=== PATIENT | male | born 1980 | race Caucasian/White ===

== ENCOUNTER → 2023-09-02 13:05 | Outpatient (REF) | payer OTHER, SELFPAY ==
[2023-09-02 14:16] LABS: % Basophils 0.7 % (0-2); % Eosinophils 3.2 % (0-6); % Immature Granulocytes 0.2 % (0-0.5); % Lymphocytes 39.2 % (20.5-51.1); % Monocytes 8.1 % (1.7-9.3); % Neutrophils 48.6 % (42.2-75.2); Absolute Eosinophils 0.2 10^3/uL (0-0.7); Absolute Lymphocytes 2.2 10^3/uL (1.2-3.4); Absolute Monocytes 0.5 10^3/uL (0.1-0.6); Absolute Neutrophils 2.8 10^3/uL (1.4-6.5); Hemoglobin 14.4 g/dL (13.0-18.0); Mean Corp Hgb Conc. 35.1 g/dL (33.0-37.0); Mean Corpuscular Hgb 32.8 pg (27.0-31.0); Mean Corpuscular Volume 93.4 fL (80.0-94.0); Mean Platelet Volume 10.6 fL (7.4-10.4); Nucleated Red Blood Cells % 0 % (-); Platelet Count 126 10^3/uL (130-400); Red Blood Cell Count 4.39 10^6/uL (4.70-6.10); Red Cell Dist. Width 12.2 % (11.5-14.5); White Blood Cell Count 5.7 10^3/uL (4.8-10.8)
[2023-09-02 14:21] LABS: Urine Albumin Trace (Neg - Trace); Urine Bilirubin 1+ (Negative); Urine Character Clear (Clear); Urine Color Amber; Urine Glucose Negative (Negative); Urine Ketone Trace (Negative); Urine Leukocyte Trace (Negative); Urine Nitrite Negative (Negative); Urine Occult Blood Negative (Negative); Urine Specific Gravity 1.025 (<1.030); Urine Urobilinogen 1+ (Neg - 1+)
[2023-09-02 14:36] LABS: ALT (SGPT) 47 U/L (0-50); AST (SGOT) 79 U/L (17-59); Albumin 4.5 g/dl (3.5-5.0); Alkaline Phosphatase 115 U/L (38-126); Blood Urea Nitrogen 12 mg/dl (9-20); Calcium 9.1 mg/dl (8.4-10.2); Carbon Dioxide 24 mmol/L (22-30); Chloride 103 mmol/L (98-107); Glucose 146 mg/dl (70-99); HDL Cholesterol 61 mg/dl; LDL Cholesterol, Calculated 95 mg/dl; Potassium 3.8 mmol/L (3.5-5.1); Sodium 133 mmol/L (135-145); Total Bilirubin 0.9 mg/dl (0.2-1.3); Total Cholesterol 171 mg/dl (50-199); Total Protein 7.7 g/dl (6.3-8.2); Triglyceride 76 mg/dl (10-149); Very Low Density Lipoprotein 15 mg/dl (0-30); eGFR > 60.00
[2023-09-02 14:38] LABS: Urine Mucus Few
[2023-09-02 14:39] LABS: Urine Red Blood Cell 0-2 /HPF (0-2)
[2023-09-02 14:40] LABS: Urine Bacteria Few (Negative)
[2023-09-03 20:05] LABS: Hepatitis B Surface Antigen Negative (Negative)
[2023-09-03 20:23] LABS: Hepatitis B Core Ab, Total Negative (Negative); Hepatitis B Surface Antibody Positive; Hepatitis C Antibody Negative (Negative)
[2023-09-05 01:43] LABS: HCV Quant by NAAT IU/mL Not Detected; HCV Quant by NAAT Interp Not Detected (Not Detected); HCV Quant by NAAT Log IU/mL Not Detected log IU/mL
== END ==
LOC: REG 13:05
PROVIDERS: ATTENDING PHYSICIAN Family Medicine
DX: B18.2 Chronic viral hepatitis C (principal); K21.9 Gastro-esophageal reflux disease without esophagitis; R10.84 Generalized abdominal pain; R30.0 Dysuria; Z00.00 Encounter for general adult medical examination without abnormal findings
CPT/HCPCS: 36415; 80053; 80061; 81003; 81015; 83036; 84443; 85025; 86704; 86706; 86803; 87340; 87522

== ENCOUNTER → 2023-12-29 12:31 | Outpatient (REF) | payer OTHER, SELFPAY | LOC: HWRAD 12:31 | PROVIDERS: ATTENDING PHYSICIAN Family Medicine | DX: K43.9 Ventral hernia without obstruction or gangrene (principal) | CPT/HCPCS: 74150 ==

== ENCOUNTER 2024-02-12 20:14 | Emergency (ER) | payer OTHER, SELFPAY ==
[2024-02-12 20:21] VITALS: BP 145/88; BMI 34.4
--- NOTE | 2024-02-12 21:12 | ED.GENMED ---
History of Present Illness
<Pat Herzog DO, Resident - Last Filed: 02/12/24 21:36>
General
Chief Complaint: Abdominal Pain
Source: patient
Time Seen by Provider: 02/12/24 20:56
History of Present Illness
History of Present Illness:
Patient is a 43-year-old male presenting to the ED with concern of left-sided abdominal mass. He states he has had this mass that fluctuates in size for the past few months. He states there is tenderness to palpation. He states he had a CT scan
to evaluate the mass in December which he went over with his primary care physician. He states he has no fevers, no chest pain, no shortness of breath, no nausea, no vomiting, no diarrhea, no radiating pain.
Past History
<Pat Herzog DO, Resident - Last Filed: 02/12/24 21:36>
Past History
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
ED Past Surgical History: None
Social History
Tobacco: Smoker
Alcohol: None
Drug: Former user
Personal: Partner
Living: with family
Employment: Employed
Family History
Family History: Other (Noncontributory)
Review of Systems
<Pat Herzog DO, Resident - Last Filed: 02/12/24 21:36>
Review of Systems
Constitutional: Reports no symptoms
EENT: Reports no symptoms
Respiratory: Reports no symptoms
Cardiac: Reports no symptoms
ABD/GI: Reports abdominal pain and constipated
: Reports no symptoms
Musculoskeletal: Reports no symptoms
Skin: Reports no symptoms
Neurological: Reports no symptoms
Phy Exam
<Pat Herzog DO, Resident - Last Filed: 02/12/24 21:36>
General Physical Exam
General Presentation: well appearing and mild distress
General age: appears stated age
General Skin: warm and dry
General Habitus: obese
General Mental: alert
General Hydration: appears well hydrated
Cardiovascular Exam
Cardiovascular Exam: regular rate/rhythm, no edema, no gallop, no JVD, no murmur and normal peripheral pulses
Pulmonary Exam
Pulmonary Exam: lungs clear, no respiratory distress, no rales, chest non tender, no crackles, no rhonchi, no stridor, no wheezing and no cough
Gastrointestinal Exam
Gastrointestinal Exam: soft, distended and tender
Musculoskeletal Exam
Musculoskeletal Exam: full ROM and no edema
Skin Exam
Skin Exam: normal color, warm/dry, no rash and no petechia
Course
<Pat Herzog DO, Resident - Last Filed: 02/12/24 21:36>
Vital Signs
Initial and Last Documented VS:
Initial Vital Signs
Temp Pulse Resp BP Pulse Ox
98.5 F 86 16 145/88 99
02/12/24 20:21 02/12/24 20:21 02/12/24 20:21 02/12/24 20:21 02/12/24 20:21
Last Documented Vital Signs
Temp Pulse Resp BP Pulse Ox
98.5 F 86 16 145/88 99
02/12/24 20:21 02/12/24 20:21 02/12/24 20:21 02/12/24 20:21 02/12/24 20:21
<Kulwant Cortez DO - Last Filed: 02/12/24 21:50>
Vital Signs
Initial and Last Documented VS:
Initial Vital Signs
Temp Pulse Resp BP Pulse Ox
98.5 F 86 16 145/88 99
02/12/24 20:21 02/12/24 20:21 02/12/24 20:21 02/12/24 20:21 02/12/24 20:21
Last Documented Vital Signs
Temp Pulse Resp BP Pulse Ox
98.5 F 86 16 145/88 99
02/12/24 20:21 02/12/24 20:21 02/12/24 20:21 02/12/24 20:21 02/12/24 20:21
<Pat Herzog DO, Resident - Last Filed: 02/12/24 21:36>
MDM/Problems Addressed
Differential Diagnosis Includes:
Abdominal pain
MDM/Problems Addressed:
Patient is a 43-year-old male presenting to the ED with concerns left-sided abdominal pain and abdominal mass. Patient is stable. Reviewed CT from December with patient and discussed that there was no mass, fluid collection, hernia development in
region of concern. Discussed lifestyle modifications with patient to improve fatty liver disease.
Chronic conditions affecting care:
N/A
Acute Exacerbation and/or Progression of Chronic Illness:
N/A
<Pat Herzog DO, Resident - Last Filed: 02/12/24 21:36>
*Pulse Oximetry
Patient hypoxic: no
*EKG
Interpreted by ED Provider?: NA
*Business Systems Lead Interpretation
Rate: Business Systems Lead- N/A
*Critical Care Note
Total Time (30-74mins, 75-104mins- exclusive of procedures): Not Applicable
ED Attending Note
<Pat Herzog DO, Resident - Last Filed: 02/12/24 21:36>
-
Portions of this chart may have been created with voice recognition software.� Occasional wrong word or��sound alike� substitutions may have occurred due to the inherent limitations of voice recognition software.
<Kulwant Cortez DO - Last Filed: 02/12/24 21:50>
ED Attending Note
Patient seen and examined by attending physician: Yes
I performed a history and physical exam of patient and discussed management with resident, I reviewed resident's note and agree with documented findings and plan of care.: Yes
ED Attending Note:
I have seen and evaluated the patient with a [id number] encounter. I have spoken to the resident and involved in the medical history, the physical exam, medical decision making.
Evaluation and management service: agree unless noted differently below.
Results interpretation: agree unless noted differently below.
Focused HPI: 43-year-old male presenting for evaluation of left flank pain. Patient states this has been going on for the past few months. He feels a lump there. Patient did have a CT already but did not appreciate the follow-up with his PCP
Physical exam: Extremely well-appearing nontoxic. Very questionable muscle spasm noted to left flank. Abdomen otherwise soft and nontender
Medical Decision Making: I printed out the CT findings from last visit. We went over the findings and discussed his liver hepatitis. Blood work done in August showed no significant abnormality other than mild LFT elevation. Patient is
comfortable with the presumed diagnosis of muscle spasm and feels comfortable going home
Discharge Plan
Departure
Patient Disposition: Home (Routine Discharge)
Date of Disposition: 02/12/24
Time of Disposition: 21:32
Patient with high blood pressure during this ER visit?: Yes
Condition: Good
Discharge Problem:
Abdominal pain
Instructions: Abdominal Pain, BLOOD PRESSURE
Prescriptions:
No Action
azithromycin 250 MG tablet
250 mg PO UD Qty: 6 0RF
albuterol sulfate 1 PUFF HFA aerosol inhaler
1 puff inhalation QIDPRN PRN (Reason: QUICK RELIEF OF WHEEZING ONLY) Qty: 1 0RF
ciprofloxacin HCl [Cipro] 500 MG tablet
500 mg PO BID Qty: 42 0RF
ondansetron 4 mg Tablet,Disintegrating
4 mg PO TIDPRN PRN (Reason: nausea/vomiting) Qty: 9 0RF
Robitussin Cough-Chest Zachary DM 5-100 mg/5 mL liquid
10 ml PO Q6H PRN (Reason: Cough) Qty: 500 0RF
Referrals:
UNKNOWN - PT DOES,NOT KNOW [Unknown Provider] -
Interventions
Interventions:
*Risk Screen - Suicide Last Done: 02/12/24 20:21
*General Assessment Last Done: 02/12/24 21:14
*Neglect/Abuse Screening Last Done: 02/12/24 20:21
ED- Fall Risk Assessment Last Done: 02/12/24 21:14
*ED COVID-19 Vaccine History Last Done: 02/12/24 21:14
GS-Rdakeb-Qxjxvzhljx Assessment Last Done: 02/12/24 21:14
Discharge Date and Time
Print Language: MONGOLIAN
== END 2024-02-12 21:45 | disposition home or self-care (01) ==
LOC: EMR 20:14
PROVIDERS: EMERGENCY PHYSICIAN Student in an Organized Health Care Education/Training Program; FAMILY PHYSICIAN Family Medicine
DX: R10.9 Unspecified abdominal pain (principal); R03.0 Elevated blood-pressure reading, without diagnosis of hypertension; F17.200 Nicotine dependence, unspecified, uncomplicated
CPT/HCPCS: 99282

== ENCOUNTER 2024-07-03 21:56 | Emergency (ER) | payer OTHER, SELFPAY ==
[2024-07-03 21:59] VITALS: BP 108/79
[2024-07-03] MEDS: ADACEL 0.5 ML IM (23:00)
[2024-07-03] MEDS: KEFLEX 500 MG PO (23:41)
--- NOTE | 2024-07-03 23:51 | ED.GENMED ---
History of Present Illness
General
Chief Complaint: Skin Surface Trauma
Source: patient
Exam Limitations: none
Time Seen by Provider: 07/03/24 22:33
Nursing documentation reviewed up to this point in time: agreed with
History of Present Illness
History of Present Illness:
43-year-old male with history as documented presents to the ER for puncture wound on his left foot. Patient dropped a pocket knife and accidentally stepped on it with his left foot and suffered a minor puncture on the instep of his left foot. Came
to the ER for assessment. No other injuries or issues. Unsure of last tetanus.
Past History
Past History
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
ED Past Surgical History: None
Social History
Tobacco: Smoker
Alcohol: None
Drug: Former user
Personal: Partner
Living: with family
Employment: Employed
Family History
Family History: Other (Noncontributory)
Review of Systems
Review of Systems
All Other Systems: ROS reviewed and negative except as documented in HPI and ROS
Skin: Reports other (Puncture wound)
Phy Exam
Physical Exam
Physical Exam:
General: Well appearing and non-toxic
HEENT: protecting airway
Neck: appears supple
CV: No evidence of cyanosis
Resp: No accessory muscle use
Abd: Non-distended
Extremities: No deformities
Neuro: Alert
Psych: Normal affect
Skin: Patient has tiny less than half a centimeter linear puncture left medial foot no active bleeding, not gaping
Scores
Heart Failure Risk
Heart Failure Risk Score: Not Applicable
Heart Score for Chest Pain Patients
STEMI patient?: Not applicable
Withdrawal Assessment of Alcohol
Withdrawal Assessment Completed?: Not applicable
Course
Orders/Labs/Results
Orders:
Orders
07/03/24 22:40
Tetanus/Diphth/Acelpertussis [Adacel] 0.5 ml IM .ONCE ONE
07/03/24 23:39
Cephalexin Monohydrate [Keflex] 500 mg .ROUTE .STK-MED ONE
07/03/24 23:41
Cephalexin Monohydrate [Keflex] 500 mg PO NOW STA
Vital Signs
Initial and Last Documented VS:
Initial Vital Signs
Temp Pulse Resp BP Pulse Ox
36.7 C 69 18 108/79 98
07/03/24 21:59 07/03/24 21:59 07/03/24 21:59 07/03/24 21:59 07/03/24 21:59
Last Documented Vital Signs
Temp Pulse Resp BP Pulse Ox
36.7 C 69 18 108/79 98
07/03/24 21:59 07/03/24 21:59 07/03/24 21:59 07/03/24 21:59 07/03/24 21:59
MDM/Problems Addressed
Differential Diagnosis Includes:
Puncture wound
MDM/Problems Addressed:
43-year-old male presents with a minor puncture wound from a pocket knife. Unsure of his last tetanus�we updated his tetanus shot here. Cleaned and dressed puncture wound here. It is not gaping, hold off on suturing for very small puncture wound
as this is higher risk for infection. Will start on prophylactic antibiotic. Spoke to patient about return precautions, all questions answered.
*Pulse Oximetry
Patient hypoxic: no
*Critical Care Note
Total Time (30-74mins, 75-104mins- exclusive of procedures): Not Applicable
Data Reviewed
Source: patient
ED Attending Note
-
Portions of this chart may have been created with voice recognition software.� Occasional wrong word or��sound alike� substitutions may have occurred due to the inherent limitations of voice recognition software.
Discharge Plan
Departure
Patient Disposition: Home (Routine Discharge)
Date of Disposition: 12/15/24
Time of Disposition: 23:33
Patient with high blood pressure during this ER visit?: No
Discharge Problem:
Puncture wound of foot
Instructions: Wound Care (DC)
Prescriptions:
New
cephalexin 500 mg capsule
500 mg PO BID 5 Days Qty: 10 0RF
No Action
azithromycin 250 MG tablet
250 mg PO UD Qty: 6 0RF
albuterol sulfate 1 PUFF HFA aerosol inhaler
1 puff inhalation QIDPRN PRN (Reason: QUICK RELIEF OF WHEEZING ONLY) Qty: 1 0RF
ciprofloxacin HCl [Cipro] 500 MG tablet
500 mg PO BID Qty: 42 0RF
ondansetron 4 mg Tablet,Disintegrating
4 mg PO TIDPRN PRN (Reason: nausea/vomiting) Qty: 9 0RF
Robitussin Cough-Chest Zachary DM 5-100 mg/5 mL liquid
10 ml PO Q6H PRN (Reason: Cough) Qty: 500 0RF
Activity Restrictions/Additional Instructions:
Thank you for visiting the Emergency Department at [facility].
1. Please schedule a follow up appointment as directed. Call first thing tomorrow morning to make an appointment.
2. If indicated, please take your medications as instructed and indicated on discharge paperwork.
3. If any of your symptoms do not improve, or persist, or become more severe within 6-12 hours, please return to the emergency department for further care.
4. Please return to the emergency department if you develop a headache, neck pain/stiffness, fever greater than 100.4F, chest pain, shortness of breath, persistent nausea, vomiting, slurred speech, difficulty walking, numbness/tingling, weakness,
signs of infection or any other symptoms that are worrisome to you.
Please call [phone] if you have any questions.
Interventions
Interventions:
*Risk Screen - Suicide Last Done: 07/03/24 23:10
*General Assessment Last Done: 07/03/24 23:10
*Neglect/Abuse Screening Last Done: 07/03/24 23:10
ED- Fall Risk Assessment Last Done: 07/03/24 23:10
*Nursing Disposition Last Done: 07/03/24 23:44
ED-Skin Assessment Last Done: 07/03/24 23:10
Discharge Date and Time
Discharge Date/Time: 07/03/24 23:44
Print Language: [place]
== END 2024-07-03 23:44 | disposition home or self-care (01) ==
LOC: EMR 21:56
PROVIDERS: EMERGENCY PHYSICIAN Emergency Medicine; FAMILY PHYSICIAN Family Medicine
DX: S91.332A Puncture wound without foreign body, left foot, initial encounter (principal); W26.0XXA Contact with knife, initial encounter; Z23 Encounter for immunization; F17.200 Nicotine dependence, unspecified, uncomplicated; F19.11 Other psychoactive substance abuse, in remission; Z79.891 Long term (current) use of opiate analgesic; Z86.16 Personal history of COVID-19
CPT/HCPCS: 99283; 90471; 90715

== ENCOUNTER 2024-10-02 04:55 | Emergency (ER) | payer OTHER, SELFPAY ==
[2024-10-02 04:56] VITALS: BP 140/82
[2024-10-02 05:40] VITALS: BMI 26.9
[2024-10-02 06:10] LABS: % Basophils 0.7 % (0-2); % Eosinophils 2.1 % (0-6); % Immature Granulocytes 0.2 % (0-0.5); % Lymphocytes 37.8 % (20.5-51.1); % Monocytes 6.7 % (1.7-9.3); % Neutrophils 52.5 % (42.2-75.2); Absolute Eosinophils 0.1 10^3/uL (0-0.7); Absolute Lymphocytes 2.2 10^3/uL (1.2-3.4); Absolute Monocytes 0.4 10^3/uL (0.1-0.6); Absolute Neutrophils 3.1 10^3/uL (1.4-6.5); Hematocrit 39.3 % (39.0-52.0); Hemoglobin 14.1 g/dL (13.0-18.0); Mean Corp Hgb Conc. 35.9 g/dL (33.0-37.0); Mean Corpuscular Hgb 32.4 pg (27.0-31.0); Mean Corpuscular Volume 90.3 fL (80.0-94.0); Mean Platelet Volume 10.4 fL (7.4-10.4); Nucleated Red Blood Cells % 0 % (-); Platelet Count 136 10^3/uL (130-400); Red Blood Cell Count 4.35 10^6/uL (4.70-6.10); Red Cell Dist. Width 12.9 % (11.5-14.5); White Blood Cell Count 5.8 10^3/uL (4.8-10.8)
[2024-10-02 06:27] LABS: ALT (SGPT) 28 U/L (0-50); AST (SGOT) 44 U/L (17-59); Albumin 4.4 g/dl (3.5-5.0); Alkaline Phosphatase 93 U/L (38-126); Blood Urea Nitrogen 11 mg/dl (9-20); Calcium 9.5 mg/dl (8.4-10.2); Carbon Dioxide 24 mmol/L (22-30); Chloride 104 mmol/L (98-107); Estimated Creatinine Clearance 123 ml/min; Glucose 126 mg/dl (70-99); Sodium 137 mmol/L (135-145); Total Bilirubin 0.7 mg/dl (0.2-1.3); Total Protein 7.6 g/dl (6.3-8.2); eGFR > 60.00
[2024-10-02 06:38] LABS: Troponin I < 0.012 ng/ml
[2024-10-02 07:21] VITALS: BP 147/85
--- NOTE | 2024-10-02 07:49 | ED.GENMED ---
History of Present Illness
General
Chief Complaint: Heart Rate Problem
Source: patient
Time Seen by Provider: 10/02/24 07:39
History of Present Illness
History of Present Illness:
43-year-old male with no significant past medical history presenting to the emergency department for evaluation after the last few days he has noticed with every heartbeat he feels a stabbing sensation that quickly goes away when his heart
'relaxes'. Patient states that the stabbing sensation does seem a little bit worse when laying flat or with deep inspiration and that it does also seem to get worse with palpation of the left anterior chest. Patient states his main concern for
coming in is that his mother from cardiac disease, younger brother has a cardiac stent and his younger sister was born 'with her heart on the opposite side of her chest'. Patient notes that he smokes a cigarette hourly and also drinks 1
to 2 glasses of wine throughout each day. Denies any fevers or recent illnesses, no recent travel. Denies any lower extremity edema. Patient is also denying any cough or other URI-like symptoms.
Past History
Past History
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
ED Past Surgical History: None
Social History
Tobacco: Smoker
Alcohol: None
Drug: Former user
Personal: Partner
Living: with family
Employment: Employed
Family History
Family History: Other (Noncontributory)
Review of Systems
Review of Systems
All Other Systems: ROS reviewed and negative except as documented in HPI and ROS
Phy Exam
Physical Exam
Physical Exam:
GENERAL: Alert , in no apparent distress
HEAD: Normocephalic atraumatic
EYE: Clear conjunctiva
NECK: Supple
ENT: o/p clr, mmm.
CARDIAC: Regular rate and rhythm, no murmur.
LUNGS: Clear breath sounds bilaterally, no acute respiratory distress, no wheezes/rales/rhonchi, clearly reproducible chest wall tenderness over the lateral aspect of the sternum on the left
ABDOMEN: Soft, without focal tenderness, no r/g, no cvat
NEUROLOGICAL: Alert and oriented
SKIN: Warm and dry, skin intact.
MUSCULOSKELETAL: No edema, well perfused.
PSYCH: Normal and appropriate interaction.
Scores
Heart Failure Risk
Heart Failure Risk Score: Not Applicable
Heart Score for Chest Pain Patients
STEMI patient?: No
History: Slightly or Non-Suspicious
ECG: Normal
Age: </= 45 years
Risk Factors: 1 or 2 Risk Factors
Troponin: </= Normal Limit
Heart Score for Chest Pain Patients: 1
Heart Score Risk: 2.5% MACE over next 6 weeks
Withdrawal Assessment of Alcohol
Withdrawal Assessment Completed?: Not applicable
Course
Orders/Labs/Results
Orders:
Orders
10/02/24 05:01
Electrocardiogram (*1) Urgent
Reason for Study: Palpitations
EKG- Treatment ONCE
10/02/24 05:47
Complete Blood Count/With Diff Urgent
Comprehensive Metabolic Panel Urgent
Troponin I Urgent
10/02/24 07:47
CR Chest - 2 Views Urgent
Comment:
Reason For Exam: chest pain/discomfort
10/02/24 08:19
Troponin I Urgent
Abnormal Lab Results
10/02/24
05:47
RBC 4.35 L 10^6/uL
(4.70-6.10)
MCH 32.4 H pg
(27.0-31.0)
Glucose 126 H mg/dl
(70-99)
10/02/24 05:47
10/02/24 05:47
Vital Signs
Initial and Last Documented VS:
Initial Vital Signs
Temp Pulse Resp BP Pulse Ox
98 F 62 18 140/82 100
10/02/24 04:56 10/02/24 04:56 10/02/24 04:56 10/02/24 04:56 10/02/24 04:56
Last Documented Vital Signs
Temp Pulse Resp BP Pulse Ox
98 F 60 21 156/93 96
10/02/24 04:56 10/02/24 09:28 10/02/24 09:00 10/02/24 09:28 10/02/24 09:28
MDM/Problems Addressed
Differential Diagnosis Includes:
Pleurisy, costochondritis, pericarditis/myocarditis, pulmonary embolism, pneumonia, ACS, cardiac dysrhythmia
MDM/Problems Addressed:
43-year-old male presenting to the emergency department for evaluation of stabbing chest discomfort that has been ongoing intermittently for the last couple of days, had been constant since 1 AM this morning but reports symptoms are now resolved.
He is hemodynamically stable and in no acute distress. Labs and EKG ordered which are all reassuring. EKG is a sinus bradycardia without any ectopy or ischemic changes seen. Will obtain repeat troponin. Chest x-ray ordered. I have minimal
suspicion for PE given lack of cough, tachycardia, hypoxia as well as reproducibility of the pain. Also do not suspect ACS given descriptive nature of the pain. Patient does have risk factors for this including extensive tobacco history as well as
family history. Will arrange for repeat troponin as well as close outpatient cardiac follow-up. Anticipate discharge home pending remaining workup. Okay
*Radiology
Radiology exam reviewed: preliminary read by ED provider (Normal chest x-ray)
*Pulse Oximetry
Patient hypoxic: no
*EKG
Heart Rate: 52
Rate: bradycardiac
Rhythm: sinus
[place]: normal axis
Ischemia: no ischemia
*Manager Science Interpretation
Rate: bradycardiac
Rhythm: sinus
*Critical Care Note
Total Time (30-74mins, 75-104mins- exclusive of procedures): Not Applicable
Patient Management
Escalation/DeEscalation of care consider admission/obs:
Repeat troponin negative. Chest x-ray within normal limits. Patient referred to the chest pain hotline. Stable for discharge home. Aware of return precautions to the ER.
ED Attending Note
-
Portions of this chart may have been created with voice recognition software.� Occasional wrong word or��sound alike� substitutions may have occurred due to the inherent limitations of voice recognition software.
Discharge Plan
Departure
Patient Disposition: Home (Routine Discharge)
Date of Disposition: 10/02/24
Time of Disposition: 09:15
Patient with high blood pressure during this ER visit?: No
Discharge Problem:
Chest pain
Instructions: Chest Pain DCA Follow Up
Prescriptions:
No Action
No Current Medications
0
Referrals:
Hung Stallings MD [Family Provider] -
Interventions
Interventions:
*Risk Screen - Suicide Last Done: 10/02/24 04:56
*General Assessment Last Done: 10/02/24 05:38
*Neglect/Abuse Screening Last Done: 10/02/24 04:56
*ED- Fall Risk Assessment Last Done: 10/02/24 05:38
*ED COVID-19 Vaccine History Last Done: 10/02/24 05:38
*Nursing Disposition Last Done: 10/02/24 09:28
ED- Cardiac Assessment Last Done: 10/02/24 05:50
ED- Pulmonary Assessment Last Done: 10/02/24 05:50
Discharge Date and Time
Discharge Date/Time: 10/02/24 09:29
Print Language: UKRAIN[place]
[2024-10-02 08:00] VITALS: BP 156/93
[2024-10-02 08:53] LABS: Troponin I < 0.012 ng/ml
[2024-10-02 09:28] VITALS: BP 156/93
== END 2024-10-02 09:29 | disposition home or self-care (01) ==
LOC: EMR 04:55
PROVIDERS: Emergency Medicine; Physician Assistant Medical; EMERGENCY PHYSICIAN Emergency Medicine; FAMILY PHYSICIAN Family Medicine
DX: R07.89 Other chest pain (principal); F17.210 Nicotine dependence, cigarettes, uncomplicated; F19.11 Other psychoactive substance abuse, in remission; Z82.49 Family history of ischemic heart disease and other diseases of the circulatory system
CPT/HCPCS: 99283; 71046; 80053; 84484; 85025; 93005